=== PATIENT | female | born 1980 | race American Indian/Alaskan Native ===

== ENCOUNTER 2017-02-15 10:43 | Emergency (ER) | payer OTHER ==
[2017-02-15 11:33] VITALS: BP 128/86
[2017-02-15] MEDS ORDERED: NORCO 5/325 PO ONE (12:11)
--- NOTE | 2017-02-15 12:22 | Emergency Department Report ---
HPI - General Chief Complaint: Shoulder Injury Time Seen by Provider: 02/15/17 12:10 - HPI HPI: This is a 36-year-old -[place] female presents to the emergency department with complaint of right shoulder and arm pain since yesterday when she accidentally fell out of bed directly onto her right shoulder. She has trouble moving the right arm at the shoulder. She denies any deformity. She says that the pain feels like it is "inside." She has not taken anything for her symptoms prior to presentation. She does not have any past medical history. She does not have a primary care physician. No recent travel or sick contacts at home. She is right-hand dominant. ED Past Medical Hx - Past Medical History Previous Medical History?: No - Surgical History Additional Surgical History: C Section 2004 - Social History Smoking Status: Never Smoker Substance Use Type: None - Medications Home Medications: Home Medications Medication Instructions Recorded Confirmed Last Taken Type HYDROcodone/APAP 5-325 [[place] 1 each PO Q6HR PRN #10 tablet 02/15/17 Unknown Rx 5/325] ED Review of Systems ROS: Stated complaint: RT ARM INJURY Other details as noted in HPI Comment: All other systems reviewed and negative Constitutional: denies: chills, fever Eyes: denies: eye pain, eye discharge, vision change ENT: denies: ear pain, throat pain Respiratory: denies: cough, shortness of breath, wheezing Cardiovascular: denies: chest pain, palpitations Gastrointestinal: denies: abdominal pain, nausea, diarrhea Genitourinary: denies: urgency, dysuria, discharge Musculoskeletal: arthralgia. denies: back pain Skin: denies: rash, lesions Neurological: denies: headache, weakness, paresthesias Physical Exam - Physical Exam Vital Signs: Vital Signs 02/15/17 02/15/17 11:27 11:35 Temperature 98.5 F 98.5 F Pulse Rate 62 75 Respiratory 16 Rate Blood Pressure 128/86 Blood Pressure 128/86 [Right] O2 Sat by Pulse 98 98 Oximetry Physical Exam: GENERAL: The patient is well-developed well-nourished. HEENT: Normocephalic. Atraumatic. Extraocular motions are intact. Patient has moist mucous membranes. Pupils equal reactive to light bilaterally. NECK: Supple. Trachea is midline. CHEST/LUNGS: Clear to auscultation. There is no respiratory distress noted. HEART/CARDIOVASCULAR: Regular. There is no tachycardia. There is no gallop rub or murmur. ABDOMEN: Abdomen is soft, nontender. Patient has normal bowel sounds. There is no abdominal distention. SKIN: Skin is warm and dry. NEURO: The patient is awake, alert, and oriented. The patient is cooperative. The patient has no focal neurologic deficits. The patient has normal speech. MUSCULOSKELETAL: There is some reproducible tenderness to palpation to the superior humerus and anterior shoulder but no obvious deformities. Radial pulses +2 over 4 bilaterally. Cap refill less than 2 seconds. I am able to show full range of motion with passive movement but the patient has some restricted active movement secondary to pain. ED Course Vital Signs 02/15/17 02/15/17 11:27 11:35 Temperature 98.5 F 98.5 F Pulse Rate 62 75 Respiratory 16 Rate Blood Pressure 128/86 Blood Pressure 128/86 [Right] O2 Sat by Pulse 98 98 Oximetry ED Medical Decision Making - Radiology Data Radiology results: image reviewed interpreted by me: X-ray of the right shoulder and humerus does not show any fracture, dislocation or any acute processes - Medical Decision Making 36-year-old female presents with right upper arm and shoulder pain since yesterday when she fell bed onto her shoulder. No obvious deformities. Neurovascularly intact. X-rays do not show any fracture, so patient any acute processes. Placed in an arm sling and given referral for an orthopedist. She may have some tendon, ligament damage or injury to the rotator cuff. She was given pain medication. She will return to the ER with any worsening of her symptoms or any acute distress. - Differential Diagnosis fracture, dislocation, contusion Critical Care Time: No Critical care attestation.: If time is entered above; I have spent that time in minutes in the direct care of this critically ill patient, excluding procedure time. ED Disposition Clinical Impression: Right shoulder injury Qualifiers: Encounter type: initial encounter Qualified Code(s): S49.91XA - Unspecified injury of right shoulder and upper arm, initial encounter Right shoulder pain Qualifiers: Chronicity: acute Qualified Code(s): M25.511 - Pain in right shoulder Disposition: DC-01 TO HOME OR SELFCARE Is pt being admited?: No Condition: Stable Instructions: Arthralgia (ED) Additional Instructions: Please follow-up with an orthopedist in the next few days. I given a referral for a local orthopedist, Dr. Moseley. Return to the emergency department with any worsening of your symptoms or any acute distress. You've been prescribed a medication that is sedating. Therefore this medication cannot be mixed with alcohol, or taken prior to driving, working, or being responsible for children. Prescriptions: HYDROcodone/APAP 5-325 [[place] 5/325] 1 each PO Q6HR PRN #10 tablet PRN Reason: Pain Referrals: PRIMARY CAREMD [Primary Care Provider] - 3-5 Days NEY MOSELEY MD [Staff Physician] - 3-5 Days Time of Disposition: 13:12
--- NOTE | 2017-02-15 12:56 | XRay Report ---
Right shoulder 3 views: History: Fall, pain. Findings: No bony or articular abnormality. No fracture or dislocation. Impression: Essentially negative right shoulder.
--- NOTE | 2017-02-15 12:57 | XRay Report ---
Right humerus 2 views: History: Fall, pain. Findings: No definite acute fracture. Very minimal periosteal reaction is noted the outer aspect of the mid humerus may be related to old injury or recent injury. Impression: Findings as detailed above.
== END 2017-02-15 13:19 | disposition home or self-care (01) ==
LOC: ED 10:43
DX: S49.91XA Unspecified injury of right shoulder and upper arm, initial encounter (principal); M25.511 Pain in right shoulder; W06.XXXA Fall from bed, initial encounter; Y93.9 Activity, unspecified; Y92.9 Unspecified place or not applicable; Y99.9 Unspecified external cause status
CPT/HCPCS: 81025; 99284

== ENCOUNTER 2017-07-22 17:07 | Emergency (ER) | payer OTHER ==
[2017-07-22] MEDS ORDERED: ZOFRAN ODT PO ONE (17:27)
[2017-07-22] MEDS ORDERED: NACL 0.9% 1000 ML 1,000 ML IV ONE (17:27)
[2017-07-22] MEDS ORDERED: ZOFRAN ODT ONE (17:27)
--- NOTE | 2017-07-22 17:31 | Emergency Department Report ---
Chief Complaint: Nausea/Vomiting/Diarrhea Stated Complaint: NAUSEA/VOMITING Time Seen by Provider: 07/22/17 17:27 - HPI History of Present Illness: There is 7-year-old female presents to the ED complaining of severe nausea or vomiting 1 week. Patient states she is about 7 weeks' gestation last menstrual period was 06/02/2017. Patient currently receives care. Patient says for the past week she has not been able to eat or drink anything and feels weak. She denies fevers/chills/abdominal pain/vaginal bleeding/fluids /pageant discharge/chest pain. - ROS Review of Systems: As noted in HPI - Exam Vital Signs: Vital Signs 07/22/17 17:09 Temperature 98.2 F Pulse Rate 110 H Respiratory 22 Rate Blood Pressure 137/100 O2 Sat by Pulse 98 Oximetry Physical Exam: GENERAL: Alert and oriented x3, no apparent distress, Normal Gait, atraumatic. ABDOMEN: No organomegaly was noted,Positive bowel sounds, soft, and non- distended. . Nontender to palpation on all Quadrants, NO CVA tenderness. SKIN: Warm and dry, No lesions, No ulceration or induration present. MSE screening note: Focused history and physical exam performed. Due to findings the following was ordered: ED Medical Decision Making - Medical Decision Making 37-year-old 7 weeks gestation presents with severe nausea Zofran ordered and administered. Labs ordered. Patient will need one to 2 L IV fluids, IV Reglan that discharge Patient to be seen by fast track provider. ED Disposition for MSE Condition: Stable
[2017-07-22] MEDS ORDERED: REGLAN IV ONE (17:32)
[2017-07-22 18:16] LABS: Basophils % (Auto) 0.5 % (0.0-1.8); Eosinophils % (Auto) 0.3 % (0.0-4.3); Hematocrit 47.1 % (30.3-42.9); Hemoglobin 15.8 gm/dl (10.1-14.3); Mean Corpuscular HGB Conc 34 % (30-34); Mean Corpuscular Hemoglobin 28 pg (28-32); Mean Corpuscular Volume 82 fl (79-97); Platelet Count 309 K/mm3 (140-440); Red Blood Count 5.73 M/mm3 (3.65-5.03); Red Cell Distribution Width 13.8 % (13.2-15.2); White Blood Count 7.1 K/mm3 (4.5-11.0)
[2017-07-22 18:28] LABS: Anion Gap 24 mmol/L; BUN/Creatinine Ratio 9; Blood Urea Nitrogen 7 mg/dL (7-17); Calcium 10.3 mg/dL (8.4-10.2); Carbon Dioxide 26 mmol/L (22-30); Chloride 86.4 mmol/L (98-107); Glucose 96 mg/dL (65-100); Potassium 3.2 mmol/L (3.6-5.0); Sodium 133 mmol/L (137-145)
[2017-07-22 21:35] LABS: Bacteria,Urine 1+ /HPF (Negative); Bilirubin,Urine SM (Negative); Blood,Urine NEG (Negative); Ketones,Urine 80 mg/dL (Negative); Leukocyte Esterase,Urine TR (Negative); Mucus,Urine 3+ /HPF; Nitrite,Urine NEG (Negative)
--- NOTE | 2017-07-22 22:05 | Emergency Department Report ---
ED N/V/D HPI - General Chief complaint: Nausea/Vomiting/Diarrhea Stated complaint: NAUSEA/VOMITING Time Seen by Provider: 07/22/17 17:27 Source: patient, family Mode of arrival: Ambulatory Limitations: No Limitations - History of Present Illness Initial comments: There is 37-year-old female presents to the ED complaining of severe nausea or vomiting 1 week. Patient states she is about 7 weeks' gestation last menstrual period was 06/02/2017. Patient currently receives care. Patient says for the past week she has not been able to eat or drink anything and feels weak. She denies fevers/chills/abdominal pain/vaginal bleeding/fluids /pageant discharge/chest pain. Patient is 7, para 3, miscarriage 2. She said her [employer] knows about her having nausea and vomiting and she is not on any medication but the nausea and vomiting and has been more today. She denies any back pain or urinary burning frequency urgency. No [id number] medication taken for nausea and vomiting. MD complaint: nausea, vomiting Onset/Timin -: days(s) Description of Vomiting: food contents Associated Abdominal Pain: No Pain Scale: 0 Improves with: none Worsens with: none Context: other ( ) Associated Symptoms: loss of appetite, nausea/vomiting. denies: myalgias, chest pain, cough, diaphoresis, fever/chills, headaches, malaise, rash, dysuria , shortness of breath, syncope, weakness - Related Data Previous Rx's Medication Instructions Recorded Last Taken Type HYDROcodone/APAP 5-325 [[place] 1 each PO Q6HR PRN #10 tablet 02/15/17 Unknown Rx 5/325] Metoclopramide [Reglan] 10 mg PO Q8H PRN 5 Days #15 tab 07/23/17 Unknown Rx Nitrofurantoin Monohyd/M-Cryst 100 mg PO Q12H 7 Days #14 capsule 07/23/17 Unknown Rx [Macrobid 100 mg Capsule] Potassium Chloride [K-Dur] 20 meq PO BID 1 Days #2 tab 07/23/17 Unknown Rx Allergies Allergy/AdvReac Type Severity Reaction Status Date / Time No Known Allergies Allergy Verified 02/15/17 11:36 ED Review of Systems ROS: Stated complaint: NAUSEA/VOMITING Other details as noted in HPI Comment: All other systems reviewed and negative Constitutional: no symptoms reported ENT: denies: throat pain Respiratory: no symptoms reported Cardiovascular: denies: chest pain, palpitations, dyspnea on exertion, orthopnea , edema, syncope, paroxysmal nocturnal dyspnea Gastrointestinal: nausea, vomiting. denies: abdominal pain, diarrhea, constipation, hematemesis, melena, hematochezia Genitourinary: denies: urgency, dysuria, frequency, hematuria, discharge, abnormal menses, dyspareunia Musculoskeletal: denies: back pain, joint swelling, arthralgia, myalgia Skin: denies: rash Neurological: denies: headache, weakness, numbness, paresthesias, confusion, abnormal gait, vertigo ED Past Medical Hx - Past Medical History Previous Medical History?: Yes Additional medical history: Miscarriage x 2, Vaginal delivery x 2 - Surgical History Past Surgical History?: Yes Additional Surgical History: C Section 2004 - Family History Family history: hypertension - Social History Smoking Status: Former Smoker Substance Use Type: Prescribed - Medications Home Medications: Home Medications Medication Instructions Recorded Confirmed Last Taken Type HYDROcodone/APAP 5-325 [[place] 1 each PO Q6HR PRN #10 tablet 02/15/17 Unknown Rx 5/325] Metoclopramide [Reglan] 10 mg PO Q8H PRN 5 Days #15 tab 07/23/17 Unknown Rx Nitrofurantoin Monohyd/M-Cryst 100 mg PO Q12H 7 Days #14 capsule 07/23/17 Unknown Rx [Macrobid 100 mg Capsule] Potassium Chloride [K-Dur] 20 meq PO BID 1 Days #2 tab 07/23/17 Unknown Rx ED Physical Exam - General Limitations: No Limitations General appearance: alert, in no apparent distress - Head Head exam: Present: atraumatic, normocephalic, normal inspection - Eye Eye exam: Present: normal appearance, PERRL, EOMI. Absent: periorbital swelling , periorbital tenderness - ENT ENT exam: Present: normal exam, normal orophraynx, mucous membranes moist, TM's normal bilaterally, normal external ear exam - Neck Neck exam: Present: normal inspection, full ROM. Absent: tenderness, meningismus, lymphadenopathy, thyromegaly - Respiratory Respiratory exam: Present: normal lung sounds bilaterally. Absent: respiratory distress, wheezes, rales, rhonchi, stridor, chest wall tenderness, accessory muscle use, decreased breath sounds, prolonged expiratory - Cardiovascular Cardiovascular Exam: Present: normal rhythm, tachycardia, normal heart sounds. Absent: systolic murmur, diastolic murmur - GI/Abdominal GI/Abdominal exam: Present: soft, normal bowel sounds. Absent: distended, tenderness, guarding, rebound, rigid, organomegaly, mass, bruit, pulsatile mass , hernia - Extremities Exam Extremities exam: Present: normal inspection, full ROM, normal capillary refill , other (no clubbing, cyanosis or edema. No neurovascular compromise. +2 pulses in all extremities. +5 strength in all extremities. Capillary refill is less than 3 seconds). Absent: tenderness, pedal edema, joint swelling, calf tenderness - Back Exam Back exam: Present: normal inspection, full ROM. Absent: tenderness, CVA tenderness (R), CVA tenderness (L), muscle spasm, paraspinal tenderness, vertebral tenderness, rash noted - Neurological Exam Neurological exam: Present: alert, oriented X3, normal gait, reflexes normal. Absent: motor sensory deficit - Psychiatric Psychiatric exam: Present: normal affect, normal mood - Skin Skin exam: Present: warm, dry, intact, normal color. Absent: rash ED Course Vital Signs 07/22/17 07/23/17 17:09 01:30 Temperature 98.2 F 98.2 F Pulse Rate 110 H 99 H Respiratory 22 16 Rate Blood Pressure 137/100 Blood Pressure 116/80 [Right] O2 Sat by Pulse 98 98 Oximetry - Reevaluation(s) Reevaluation #1: 07/23/17 01:00 Stable throughout ED course. She is currently getting an IV fluid 1 L, she received Zofran 8 mg ODT in triage area, patient received Reglan 10 mg IV and also she received Rocephin 1 g E for urinary tract infection. Reevaluation #2: 07/23/17 02:15 Patient reports that her nausea has been relieved. She is able to tolerate oral liquids and drank 2 cups of juice in the emergency room without any vomiting. No adverse reaction from medication given emergency room. Blood pressure has normalized and rate is less than 100 07/23/17 02:18 ED Medical Decision Making - Lab Data Result diagrams: 07/22/17 17:52 07/22/17 17:52 Lab Results 07/22/17 07/22/17 07/22/17 Range/Units 17:52 17:52 17:52 WBC 7.1 (4.5-11.0) K/mm3 RBC 5.73 H (3.65-5.03) M/mm3 Hgb 15.8 H (10.1-14.3) gm/dl Hct 47.1 H (30.3-42.9) % MCV 82 (79-97) fl MCH 28 (28-32) pg MCHC 34 (30-34) % RDW 13.8 (13.2-15.2) % Plt Count 309 (140-440) K/mm3 Lymph % (Auto) 38.9 H (13.4-35.0) % Coffee % (Auto) 9.7 H (0.0-7.3) % Eos % (Auto) 0.3 (0.0-4.3) % Baso % (Auto) 0.5 (0.0-1.8) % Lymph # 2.8 (1.2-5.4) K/mm3 Coffee # 0.7 (0.0-0.8) K/mm3 Eos # 0.0 (0.0-0.4) K/mm3 Baso # 0.0 (0.0-0.1) K/mm3 Seg Neutrophils % 50.6 (40.0-70.0) % Seg Neutrophils # 3.6 (1.8-7.7) K/mm3 Sodium 133 L (137-145) mmol/L Potassium 3.2 L (3.6-5.0) mmol/L Chloride 86.4 L (98-107) mmol/L Carbon Dioxide 26 (22-30) mmol/L Anion Gap 24 mmol/L BUN 7 (7-17) mg/dL Creatinine 0.8 (0.7-1.2) mg/dL Estimated GFR > 60 ml/min BUN/Creatinine Ratio 9 % Glucose 96 (65-100) mg/dL Calcium 10.3 H (8.4-10.2) mg/dL HCG, Qual Positive (Negative) Urine Color (Yellow) Urine Turbidity (Clear) Urine pH (5.0-7.0) Ur Specific [place] (1.003-1.030) Urine Protein (Negative) mg/dL Urine Glucose (UA) (Negative) mg/dL Urine Ketones (Negative) mg/dL Urine Blood (Negative) Urine Nitrite (Negative) Urine Bilirubin (Negative) Urine Ictotest (Negative) Urine Urobilinogen (<2.0) mg/dL Ur Leukocyte Esterase (Negative) Urine WBC (Auto) (0.0-6.0) /HPF Urine RBC (Auto) (0.0-6.0) /HPF U Epithel Cells (Auto) (0-13.0) /HPF Urine Bacteria (Auto) (Negative) /HPF Hyaline Casts /LPF Urine Mucus /HPF 07/22/17 Range/Units 21:06 WBC (4.5-11.0) K/mm3 RBC (3.65-5.03) M/mm3 Hgb (10.1-14.3) gm/dl Hct (30.3-42.9) % MCV (79-97) fl MCH (28-32) pg MCHC (30-34) % RDW (13.2-15.2) % Plt Count (140-440) K/mm3 Lymph % (Auto) (13.4-35.0) % Coffee % (Auto) (0.0-7.3) % Eos % (Auto) (0.0-4.3) % Baso % (Auto) (0.0-1.8) % Lymph # (1.2-5.4) K/mm3 Coffee # (0.0-0.8) K/mm3 Eos # (0.0-0.4) K/mm3 Baso # (0.0-0.1) K/mm3 Seg Neutrophils % (40.0-70.0) % Seg Neutrophils # (1.8-7.7) K/mm3 Sodium (137-145) mmol/L Potassium (3.6-5.0) mmol/L Chloride (98-107) mmol/L Carbon Dioxide (22-30) mmol/L Anion Gap mmol/L BUN (7-17) mg/dL Creatinine (0.7-1.2) mg/dL Estimated GFR ml/min BUN/Creatinine Ratio % Glucose (65-100) mg/dL Calcium (8.4-10.2) mg/dL HCG, Qual (Negative) Urine Color [place] (Yellow) Urine Turbidity Clear (Clear) Urine pH 5.0 (5.0-7.0) Ur Specific [place] 1.031 H (1.003-1.030) Urine Protein 100 mg/dl (Negative) mg/dL Urine Glucose (UA) 50 (Negative) mg/dL Urine Ketones 80 (Negative) mg/dL Urine Blood Neg (Negative) Urine Nitrite Neg (Negative) Urine Bilirubin Sm (Negative) Urine Ictotest Negative (Negative) Urine Urobilinogen 4.0 (<2.0) mg/dL Ur Leukocyte Esterase Tr (Negative) Urine WBC (Auto) 10.0 H (0.0-6.0) /HPF Urine RBC (Auto) 3.0 (0.0-6.0) /HPF U Epithel Cells (Auto) 14.0 H (0-13.0) /HPF Urine Bacteria (Auto) 1+ (Negative) /HPF Hyaline Casts 4 /LPF Urine Mucus 3+ /HPF Urine culture pending - Medical Decision Making ED course: She presents to emergency room with complaint of nausea and vomiting 2 days and that she is 7 weeks and being followed by [facility]/ [facility]. She says she gets care. Patient reports that her last ultrasound was done at [facility] on 07/18/2017 and it shows that she has normal in her uterus without any complication. Patient was not having any vaginal bleeding, discharge or abdominal pain. No back pain, urinary burning frequency urgency. Urinalysis showed patient with bladder infection without any hematuria and dehydration. Urine is positive. CBC is stable and patient with potassium is 3.2 and sodium of 133. She was repleted with 40 mEq of potassium in emergency room. Patient was given IV fluid 1 L normal saline, Reglan 10 mg IV and Rocephin 1 g IV for UTI and dehydration, nausea and vomiting. Given Zofran 4 mg ODT in triage area prior to coming to ED room. This did not relieve her nausea. I discussed the patient and her lab results and ultrasound findings and she voiced understanding. I also discussed with her that she needs to increase her fluid intake and she is to follow-up with her [employer] to call this morning and let's [employer] knows that she was in the emergency room and treated for nausea and vomiting in and low potassium and she will need to schedule an appointment for follow-up visit. Patient is stable and she feels much better her heart rate is less than 100 and she has no active vomiting or nausea and was able to tolerate oral liquids after nausea medication. Suspect her sodium should be better because she was given 1 L normal saline and she will be discharged home to continue to take her vitamin and continue with visits and to take potassium 20 mEq twice daily 1 day and she will need to have her potassium level checked by OB/ WEIGHT CHECKER and I told her that if she has recurrence in her nausea and vomiting, fever and/or chills, abdominal, back pain, vaginal bleeding and/or discharge she needs to return to the emergency room. I also discussed patient that her sodium was low and should be better now to IV fluid. I instructed her that she had ketone in her urine Which reflects hydration and she'll need to drink at least 2-3 L of fluid daily. Her blood pressure was initially elevated but became normal after treatment in the emergency room. I discussed with her that she needs to keep her log for blood pressure and also to tell her [employer] that she had protein in her urine and she needs to take blood pressure readings to her [employer] visit for evaluation as protein in urine and elevated blood pressure are warning signs and . She voiced understanding the discharge instructions and diagnosis plan and follow-up visit. Discharge home in stable condition with prescription for potassium. I Told her that she should increase her intake of bananas and cantaloupes as these fruits are high in potassium. Pt discharged home with prescription for Macrobid, Reglan and potassium. Critical care attestation.: If time is entered above; I have spent that time in minutes in the direct care of this critically ill patient, excluding procedure time. ED Disposition Clinical Impression: Nausea and vomiting in , Dehydration during , Hyponatremia, Hypokalemia due to loss of potassium, Acute cystitis during in first trimester, Ketonuria, Proteinuria affecting in first trimester Disposition: DC-01 TO HOME OR SELFCARE Is pt being admited?: No Does the pt Need Aspirin: No Condition: Stable Instructions: Morning Sickness (ED), (ED), Acute Nausea and Vomiting (ED), Hyponatremia (ED), Dehydration (ED), Hypokalemia (ED), Pre-eclampsia and Eclampsia (ED), How to Take a Blood Pressure (ED) Additional Instructions: Please follow-up with left sacral [employer]NA[employer]. Call this morning to schedule and appointment follow-up nausea and vomiting in an early , low potassium, dehydration, low sodium, proteinuria, elevated blood pressure while in emergency room for evaluation and further management. take your vitamins and vitamin and continue care Take Potassium as prescribed InCrease your fluid intake to 23 L of fluid per day Blood pressure was elevated times one in emergency room and she has some protein in urine which can be dangerous in so please keep a log few blood pressure and he will need repeat urinalysis to check for protein in urine at your [employer] office. Please see discharge instructions on diagnoses and specifically on eclampsia/preeclampsia. Take Reglan as needed for nausea and/or vomiting. If he developed, vaginal bleeding, abdominal or back pain, recurrence of nausea or vomiting not controlled with Reglan, swelling to extremities, shortness of breath or chest pain, vaginal bleeding or discharge, fever or chills please return to emergency room MATY otherwise follow up with the [employer]. please take antibiotic as prescribed for urinary tract infection Prescriptions: Metoclopramide [Reglan] 10 mg PO Q8H PRN 5 Days #15 tab PRN Reason: Nausea And Vomiting Nitrofurantoin Monohyd/M-Cryst [Macrobid 100 mg Capsule] 100 mg PO Q12H 7 Days # 14 capsule Potassium Chloride [K-Dur] 20 meq PO BID 1 Days #2 tab Referrals: [facility] [Provider Group] - 07/23/17 PRIMARY CAREMD [Primary Care Provider] - 07/24/17 Forms: Accompanied Note, Work/School Release Form(ED)
[2017-07-22] MEDS ORDERED: ROCEPHIN/NS 1 GM/50 ML 1 GM/50 ML BAG IV ONE (22:44)
[2017-07-22] MEDS ORDERED: REGLAN ONE (22:57)
[2017-07-22] MEDS ORDERED: XYLOCAINE 1% MPF 5 mL ONE (22:58)
[2017-07-22] MEDS ORDERED: ROCEPHIN ONE (22:58)
[2017-07-23] MEDS ORDERED: ROCEPHIN/NS 1 GM/50 ML 1 GM/50 ML BAG IV ONE (01:00)
[2017-07-23] MEDS ORDERED: K-DUR PO ONE (02:20)
[2017-07-23 03:40] VITALS: BP 120/83
== END 2017-07-23 03:39 | disposition home or self-care (01) ==
LOC: ED 17:07
DX: O21.9 Vomiting of pregnancy, unspecified (principal); O26.891 Other specified pregnancy related conditions, first trimester; E87.1 Hypo-osmolality and hyponatremia; E86.0 Dehydration; N30.00 Acute cystitis without hematuria; R82.4 Acetonuria; R80.9 Proteinuria, unspecified; R11.0 Nausea; Z87.891 Personal history of nicotine dependence; Z3A.01 Less than 8 weeks gestation of pregnancy
CPT/HCPCS: 36415; 80048; 81001; 84703; 85025; 87086; 96365; 96375; 99284; J0696; J2765; J7030; Q0162

== ENCOUNTER 2018-01-19 20:30 | Emergency (ER) | payer OTHER ==
[2018-01-19 21:23] VITALS: BP 136/91
--- NOTE | 2018-01-20 01:40 | Emergency Department Report ---
Abscess Boil HPI - HPI Chief Complaint: Skin/Abscess/Foreign Body Stated Complaint: POSSIBLE SPITER BITE Time Seen by Provider: 01/20/18 00:53 History: Yes Pain, No Fever, No Purulent Drainage, No Numbness, No Foreign Body , No Previous History HPI: 37-year-old -Turk[place] female in at third trimester comes in for concern of a abscess on her left buttocks. Patient is not sure if she's gotten bitten by a spider but had noticed it for about 2 days. Patient reports she is put in some bowl E's on it which has not improved. Patient denies any fever chills no nausea no vomiting. Home Medications: Previous Rx's Medication Instructions Recorded Last Taken Type HYDROcodone/APAP 5-325 [Zillah 1 each PO Q6HR PRN #10 tablet 02/15/17 Unknown Rx 5/325] Metoclopramide [Reglan] 10 mg PO Q8H PRN 5 Days #15 tab 07/23/17 Unknown Rx Nitrofurantoin Monohyd/M-Cryst 100 mg PO Q12H 7 Days #14 capsule 07/23/17 Unknown Rx [Macrobid 100 mg Capsule] Potassium Chloride [K-Dur] 20 meq PO BID 1 Days #2 tab 07/23/17 Unknown Rx Cephalexin [Keflex] 500 mg PO BID #20 capsule 01/20/18 Unknown Rx Allergies/Adverse Reactions: Allergies Allergy/AdvReac Type Severity Reaction Status Date / Time No Known Allergies Allergy Verified 02/15/17 11:36 ED Review of Systems ROS: Stated complaint: POSSIBLE SPITER BITE Other details as noted in HPI Constitutional: denies: chills, fever Gastrointestinal: denies: abdominal pain, nausea, diarrhea Skin: lesions (buttocks) Neurological: denies: headache, weakness, paresthesias ED Past Medical Hx - Past Medical History Previous Medical History?: No Additional medical history: Miscarriage x 2, Vaginal delivery x 2, MRSA - Surgical History Additional Surgical History: C Section 2004 - Social History Smoking Status: Never Smoker Substance Use Type: None - Medications Home Medications: Home Medications Medication Instructions Recorded Confirmed Last Taken Type HYDROcodone/APAP 5-325 [Zillah 1 each PO Q6HR PRN #10 tablet 02/15/17 Unknown Rx 5/325] Metoclopramide [Reglan] 10 mg PO Q8H PRN 5 Days #15 tab 07/23/17 Unknown Rx Nitrofurantoin Monohyd/M-Cryst 100 mg PO Q12H 7 Days #14 capsule 07/23/17 Unknown Rx [Macrobid 100 mg Capsule] Potassium Chloride [K-Dur] 20 meq PO BID 1 Days #2 tab 07/23/17 Unknown Rx Cephalexin [Keflex] 500 mg PO BID #20 capsule 01/20/18 Unknown Rx ED Abscess Boil Physical Exam - Exam General: Vital signs noted. No distress. Alert and acting appropriately. Size: 3 cm Exam: Yes Tenderness, No Fluctuance, No Surrounding Cellulites/Erythema, No Lymphangitis, No Crepitation, No Heart Murmur, No Normal Neurologic Exam, No Normal Circulation ED Course Vital Signs 01/19/18 21:18 Temperature 98.6 F Pulse Rate 118 H Respiratory 18 Rate Blood Pressure 136/91 O2 Sat by Pulse 98 Oximetry Critical care attestation.: If time is entered above; I have spent that time in minutes in the direct care of this critically ill patient, excluding procedure time. ED Medical Decision Making - Medical Decision Making Patient has been evaluated by this provider in fast track. Patient has a abscess to her left buttocks that does not have any cellulitis. The lesion is non-fluctuant and indurated tender to palpate. Discussed the patient were not able to incision and drainage it is too firm at this time. I discussed the patient to continue with warm hot compresses to the site. Complete antibiotics and I will place her on and follow up with her primary care provider or the emergency room in 3-4 days. Patient verbalized understanding. ED Disposition Clinical Impression: Boil of buttock Disposition: DC-01 TO HOME OR SELFCARE Is pt being admited?: No Does the pt Need Aspirin: No Condition: Stable Instructions: Cephalexin (By mouth), Furunculosis and Carbunculosis (ED) Additional Instructions: Complete antibiotics as prescribed. Warm compresses to the boil. Tylenol for pain management. Return back to the emergency room for reevaluation in the next 3-5 days if no improvement. Prescriptions: Cephalexin [Keflex] 500 mg PO BID #20 capsule Referrals: VINCE JOAQUIN MD [Primary Care Provider] - 3-5 Days Forms: Work/School Release Form(ED), Accompanied Note
== END 2018-01-20 01:40 | disposition home or self-care (01) ==
LOC: ED 20:30
DX: O26.893 Other specified pregnancy related conditions, third trimester (principal); L02.31 Cutaneous abscess of buttock; Z3A.00 Weeks of gestation of pregnancy not specified
CPT/HCPCS: 99282

== ENCOUNTER 2018-05-22 13:58 | Outpatient (CLI) | payer OTHER | END 2018-05-22 13:59 | disposition home or self-care (01) | LOC: WOUND 13:58 | PROVIDERS: ATTEND Surgery | DX: T81.89XD Other complications of procedures, not elsewhere classified, subsequent encounter (principal); S31.104D Unspecified open wound of abdominal wall, left lower quadrant without penetration into peritoneal cavity, subsequent encounter; I10 Essential (primary) hypertension; Z87.891 Personal history of nicotine dependence; X58.XXXD Exposure to other specified factors, subsequent encounter | CPT/HCPCS: 97605 ==

== ENCOUNTER 2018-07-03 12:57 | Outpatient (CLI) | payer MEDICAID, OTHER ==
[2018-07-03] MEDS ORDERED: XYLOCAINE TOPICAL 4% TP ONE ×2 (13:27→16:00)
[2018-07-03] MEDS ORDERED: SILVER NITRATE TP ONE ×2 (13:44→15:58)
== END 2018-07-03 12:58 | disposition home or self-care (01) ==
LOC: WOUND 12:57
PROVIDERS: ATTEND Surgery
DX: T81.89XD Other complications of procedures, not elsewhere classified, subsequent encounter (principal); S30.821D Blister (nonthermal) of abdominal wall, subsequent encounter; I10 Essential (primary) hypertension; M32.9 Systemic lupus erythematosus, unspecified; E66.9 Obesity, unspecified; Z68.41 Body mass index [BMI] 40.0-44.9, adult; Z87.891 Personal history of nicotine dependence; X58.XXXD Exposure to other specified factors, subsequent encounter; Y83.8 Other surgical procedures as the cause of abnormal reaction of the patient, or of later complication, without mention of misadventure at the time of the procedure
CPT/HCPCS: 17250

== ENCOUNTER 2018-08-05 12:50 | Outpatient (CLI) | payer MEDICAID, OTHER ==
[2018-08-05] MEDS ORDERED: XYLOCAINE TOPICAL 4% TP ONE (12:55)
[2018-08-05] MEDS ORDERED: SILVER NITRATE TP ONE (13:23)
== END 2018-08-05 12:51 | disposition home or self-care (01) ==
LOC: WOUND 12:50
PROVIDERS: ATTEND Surgery
DX: T81.89XD Other complications of procedures, not elsewhere classified, subsequent encounter (principal); S30.821D Blister (nonthermal) of abdominal wall, subsequent encounter; I10 Essential (primary) hypertension; Z87.891 Personal history of nicotine dependence; X58.XXXD Exposure to other specified factors, subsequent encounter; Y83.8 Other surgical procedures as the cause of abnormal reaction of the patient, or of later complication, without mention of misadventure at the time of the procedure
CPT/HCPCS: 17250

== ENCOUNTER 2018-08-14 10:24 | Outpatient (CLI) | payer MEDICAID, OTHER ==
[2018-08-14] MEDS ORDERED: XYLOCAINE TOPICAL 4% TP ONE (10:56)
== END 2018-08-14 10:25 | disposition home or self-care (01) ==
LOC: WOUND 10:24
PROVIDERS: ATTEND Surgery
DX: T81.89XD Other complications of procedures, not elsewhere classified, subsequent encounter (principal); S31.104D Unspecified open wound of abdominal wall, left lower quadrant without penetration into peritoneal cavity, subsequent encounter; I10 Essential (primary) hypertension; Z87.891 Personal history of nicotine dependence; X58.XXXD Exposure to other specified factors, subsequent encounter; Y83.8 Other surgical procedures as the cause of abnormal reaction of the patient, or of later complication, without mention of misadventure at the time of the procedure
CPT/HCPCS: 99213; G0463